=== PATIENT | female | born 1965 | race African-American/Black ===

== ENCOUNTER 2018-12-11 03:18 | Inpatient (IN) | payer BC ==
[2018-12-11] VITALS (8 sets, daily range): BP systolic 112–139; BP diastolic 70–97
[~2018-12-11] VITALS: Ht 160 cm; Wt 83.9 kg
[2018-12-11] MEDS: ALBUTEROL (0.083%) 2.5MG/3ML NEB HHN SCH ×3 (00:35→04:30)
[2018-12-11] MEDS ORDERED: IPRATROPIUM BROMIDE (0.02%) 0.5MG/2.5ML NEB HHN STA (03:24)
[2018-12-11] MEDS ORDERED: METHYLPREDNISOLONE SOD SUCC 125 MG/2 ML VIAL IV STA (03:24)
[2018-12-11] MEDS ORDERED: ONDANSETRON HCL 4MG/2ML INJ IV STA (03:24)
[2018-12-11] MEDS ORDERED: MAGNESIUM 2 G PREMIX 50 ML IV ONE (03:30)
[2018-12-11 03:46] LABS: BASOPHILS % 0.7 % (0.0-2.0); EOSINOPHILS % 10.1 % (0.0-5.0); HEMATOCRIT. 34.4 % (36.0-48.0); HEMOGLOBIN. 11.2 g/dL (12.0-16.0); LYMPHOCYTES % 36.8 % (20.0-50.0); MEAN CORPUSCULAR HEMOGLOBIN 33.1 pg (28.0-32.0); MEAN CORPUSCULAR VOLUME 101.9 fL (81.0-99.0); MEAN PLATELET VOLUME 7.8 fl (7.4-10.4); MONOCYTES % 9.8 % (2.0-8.0); NEUTROPHILS % 42.6 % (40.0-76.0); PLATELET 426 x1000/uL (130-400); RED BLOOD CELL COUNT 3.37 mill/uL (4.2-5.4); RED CELL DISTRIBUTION WIDTH 15.9 % (11.6-14.6)
[2018-12-11 03:47] LABS: CHLORIDE 110 mEq/L (98-107)
[2018-12-11] MEDS ORDERED: AZITHROMYCIN 500 MG in DEXT 5% WATER 250 ML IV ONE (04:30)
[2018-12-11] MEDS ORDERED: CEFTRIAXONE 1 G PREMIX 50 ML IV ONE (04:30)
[2018-12-11 04:32] LABS: BG BASE EXCESS -1.2 mmol/L (-2.0-2.0); BG BILEVEL POS AIRWAY PRESSURE 18/5; BG CARBOXYHEMOGLOBIN 0.7 % (0.5-1.5); BG DEOXYHEMOGLOBIN 14.2 % (0.0-5.0); BG FRACTION INSPIRED OXYGEN 50; BG HCO3 ACT 25.9 mmol/L (22.0-26.0); BG METHEMOGLOBIN 0.3 % (0.0-1.5); BG OXYGEN SATURATION 85.7 % (92.0-98.5); BG OXYHEMOGLOBIN 84.8 % (94.0-97.0); BG PCO2 54.2 mmHg (35.0-45.0); BG PH 7.297 (7.350-7.450); BG PO2 56.4 mmHg (75.0-100.0); BG SAMPLE SITE LEFT RADIAL; BG TIDAL VOLUME(mL) 793 mL; BG TOTAL HEMOGLOBIN 11.8 g/dL (12.0-18.0); BG VENT MODE MASK - BIPAP; BG VENT RATE 16 set
[2018-12-11] MEDS: METHYLPREDNISOLONE SOD SUCC 125 MG/2 ML VIAL IV SCH ×2 (13:43→22:22)
[2018-12-11] MEDS ORDERED: IPRATROPIUM/ALBUTEROL 0.5-3(2.5)MG/3ML NEB HHN PRN (15:00)
[2018-12-11] MEDS: IPRATROPIUM/ALBUTEROL 0.5-3(2.5)MG/3ML NEB HHN SCH ×2 (15:18→19:57)
[2018-12-11] MEDS ORDERED: MAGNESIUM HYDROXIDE 400MG/5ML 30ML UDC PO PRN (16:00)
[2018-12-11] MEDS ORDERED: ACETAMINOPHEN 325MG TABLET PO PRN (16:00)
[2018-12-11] MEDS: DOCUSATE SODIUM 250MG CAPSULE PO SCH (16:20)
[2018-12-11] MEDS: LORATADINE 10MG TABLET PO SCH (16:20)
[2018-12-11] MEDS: MONTELUKAST SODIUM 10MG TABLET PO SCH (16:20)
[2018-12-11] MEDS: GUAIFENESIN 600MG ER TABLET PO SCH (20:49)
[2018-12-11] MEDS: FAMOTIDINE 20MG TABLET PO SCH (20:49)
[2018-12-11] MEDS: TEMAZEPAM 15MG CAPSULE PO PRN (22:32)
[2018-12-12] VITALS (11 sets, daily range): BP systolic 94–142; BP diastolic 41–92
[2018-12-12] MEDS: IPRATROPIUM/ALBUTEROL 0.5-3(2.5)MG/3ML NEB HHN SCH ×5 (00:39→20:46)
[2018-12-12] MEDS: METHYLPREDNISOLONE SOD SUCC 125 MG/2 ML VIAL IV SCH ×3 (05:33→22:05)
[2018-12-12] MEDS: GUAIFENESIN 600MG ER TABLET PO SCH ×2 (09:00→21:00)
[2018-12-12] MEDS: LORATADINE 10MG TABLET PO SCH (09:00)
[2018-12-12] MEDS: DOCUSATE SODIUM 250MG CAPSULE PO SCH (09:00)
[2018-12-12] MEDS: FAMOTIDINE 20MG TABLET PO SCH ×2 (09:00→21:00)
[2018-12-12] MEDS: MONTELUKAST SODIUM 10MG TABLET PO SCH (17:22)
[2018-12-12] MEDS: TEMAZEPAM 15MG CAPSULE PO PRN (22:06)
[2018-12-13] MEDS: IPRATROPIUM/ALBUTEROL 0.5-3(2.5)MG/3ML NEB HHN SCH ×3 (00:38→08:00)
[2018-12-13 02:00] VITALS: BP 95/56
[2018-12-13 04:00] VITALS: BP 101/51
[2018-12-13] MEDS: METHYLPREDNISOLONE SOD SUCC 125 MG/2 ML VIAL IV SCH (05:51)
[2018-12-13 06:00] VITALS: BP 114/77
[2018-12-13 08:00] VITALS: BP 131/75
[2018-12-13] MEDS: DOCUSATE SODIUM 250MG CAPSULE PO SCH (09:12)
[2018-12-13] MEDS: FAMOTIDINE 20MG TABLET PO SCH (09:12)
[2018-12-13] MEDS: GUAIFENESIN 600MG ER TABLET PO SCH (09:12)
[2018-12-13] MEDS: LORATADINE 10MG TABLET PO SCH (09:12)
[2018-12-13 09:39] VITALS: BP 113/67
[2018-12-13 10:01] VITALS: BP 119/61
== END 2018-12-13 10:15 | disposition home or self-care (01) | DRG 189 ==
LOC: ER 03:18 → 5EST 04:51 → EDBEDREQSVC 04:57 → EDBEDREQ 04:57 → EDBEDREQTM 04:57 → ENRESERV 09:25
PROVIDERS: ADMIT Internal Medicine; ATTEND Internal Medicine
DX: J96.21 Acute and chronic respiratory failure with hypoxia (principal); J44.1 Chronic obstructive pulmonary disease with (acute) exacerbation; J45.902 Unspecified asthma with status asthmaticus; E87.2 Acidosis; D64.9 Anemia, unspecified; D72.1 Eosinophilia; E78.00 Pure hypercholesterolemia, unspecified; Z83.3 Family history of diabetes mellitus; Z90.710 Acquired absence of both cervix and uterus; Z99.81 Dependence on supplemental oxygen; F17.210 Nicotine dependence, cigarettes, uncomplicated; R73.9 Hyperglycemia, unspecified
CPT/HCPCS: 36415; 36600; 71045; 82375; 82805; 83036; 83605; 83880; 84484; 93005; 94618; 94640; 94660; 96374; 99285; J0456; J0696; J2405; J2930; J3475; J7060; J7611; J7620